=== PATIENT | female | born 1945 | race Hispanic/Latino ===

== ENCOUNTER 2020-04-14 12:39 | Observation (INO) | payer MEDICARE, BC ==
[~2020-04-14] VITALS: Ht 154.9 cm; Wt 81.6 kg
[~2020-04-14 12:39] MED LIST: ESIDRIX25 MG PO; Z VITAMIN E PO; Z.0.CARVEDILOL12.5 M PO; Z.0.LISINOPRIL30 MG PO; Z.1.MECLIZINE HCL25
[2020-04-14] MEDS ORDERED: SODIUM CHLORIDE 0.9% 1000ML 1,000 ML IV STA (13:06)
[2020-04-14] MEDS ORDERED: PANTOPRAZOLE 40 MG 10ML VIAL IV STA (13:06)
[2020-04-14] MEDS ORDERED: ASPIRIN 81 MG CHEW TAB PO STA (13:06)
--- OUTSIDE RECORDS SUMMARY | 2020-04-14 13:29 | XMS REPORT | Clinical Summary ---
Author Author NATASHA [facility] Address Unknown Phone Unavailable Care Team Providers Care Booking Supervisor Name Role Phone Enrrique Gutierrez PCP Unavailable Allergies No Known Allergies Medications End Date Status Medication Sig Dispensed Refills Start Date Active lisinopril Take 30 mg by 0 (PRINIVIL,ZESTRIL) 30 MG mouth daily. tablet Active carvedilol (COREG) 12.5 Take 12.5 mg 0 MG tablet by mouth 2 (two) times daily with breakfast and dinner. Active omega-3 fatty Take by 0 acids-vitamin E 1,000 mg mouth. Cap Active aspirin 81 MG EC tablet Take 81 mg by 0 mouth daily. 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 Last Filed Vital Signs Not on file Plan of Treatment Not on file Results Not on fileafter 2019 Insurance Payer Benefit Subscriber ID Type Phone Address Plan / Group [employer] K[employer] xxxxxxxxxxx MEDICARE ADV BLUE CROSS/BLUE SHIELD BCBS FED xxxxxxxxx PPO [address] [place] [address] Advance Directives For more information, please contact: [facility] [address] [place] [address] Date Inactivated Comments Code Status Date Activated 10/21/2014 10:21 PM Full Code 10/19/2014 3:39 AM This code status was determined by: Patient
[2020-04-14 13:54] LABS: BASOPHILS % 0.5 % (0.0-1.0); EOSINOPHILS # (AUTO) 0.2 (0.0-0.4); EOSINOPHILS % 2.9 % (0.0-6.0); HEMATOCRIT 39.2 % (34.2-44.1); HEMOGLOBIN 13.1 g/dL (12.0-16.0); LYMPHOCYTES # (AUTO) 1.9 (1.0-3.2); LYMPHOCYTES % 34.6 % (18.0-39.1); MEAN CORPUSCULAR HGB CONC 33.4 g/dL (31-35); MEAN CORPUSCULAR VOLUME 86.9 fL (81-99); MONOCYTES # (AUTO) 0.5 (0.2-0.8); MONOCYTES % 8.2 % (4.4-11.3); NEUTROPHILS # (AUTO) 2.9 (2.1-6.9); NEUTROPHILS % 53.4 % (38.7-80.0); PARTIAL THROMBOPLASTIN TIME 31.9 seconds (23.8-35.5); PLATELET COUNT 91 x10e3/uL (140-360); PROTHROMBIN TIME 13.7 seconds (11.9-14.5); RED BLOOD COUNT 4.51 x10e6/uL (3.6-5.1); RED CELL DISTRIBUTION WIDTH 13.2 % (11.7-14.4)
[2020-04-14 13:58] LABS: ALANINE AMINOTRANSFERASE 25 IU/L (0-55); ALBUMIN 3.8 g/dL (3.5-5.0); ALBUMIN/GLOBULIN RATIO 0.9 (0.8-2.0); ALKALINE PHOSPHATASE 94 IU/L (40-150); ANION GAP 16.3 mmol/L (8-16); BLOOD UREA NITROGEN 16 mg/dL (7-26); BUN/CREATININE RATIO 21 (6-25); CALCIUM 9.2 mg/dL (8.4-10.2); CARBON DIOXIDE 21 mmol/L (22-29); CHLORIDE 107 mmol/L (98-107); CREATINE KINASE 96 IU/L (29-168); CREATININE, SERUM 0.75 mg/dL (0.57-1.11); EST GLOMERULAR FILTRATION RATE > 60 ML/MIN (60-); GLUCOSE 90 mg/dL (74-118); LIPASE 10 U/L (8-78); MAGNESIUM 1.6 MG/DL (1.3-2.1); POTASSIUM 3.3 mmol/L (3.5-5.1); SODIUM 141 mmol/L (136-145)
--- NOTE | 2020-04-14 14:03 | Emergency Department Note ---
History of Present Illnes History of Present Illness Chief Complaint: Chest Pain History of Present Illness This is a 75 year old female PATIENT IN FROM HOME WITH COMPLAINTS OF CH EST PAIN OFF AND ON SINCE LAST NIGHT; PATIENT DENIES PAIN AT THIS TIME, STATES THAT SHE HAS REFLUX AND FEELS LIKE MAYBE THAT WAS THE PAIN. PATIENT ALERT AND ORIENTED, RESP EVEN AND NONLABORED, APPEARS IN NO DISTRESS, AMBULATORY WITHOUT ASSISTANCE. Historian: Patient Arrival Mode: Car Commercial Credit Officer Required: No Onset (how long ago): day(s) (SINCE LAST NIGHT) Location: SUN[place]NAL CHEST Quality: PAIN Radiation: Reports non-radiation Severity: moderate Onset quality: gradual Timing of current episode: intermittent Progression: waxing and waning Chronicity: new Context: Denies recent illness Relieving factors: none Exacerbating factors: none Associated symptoms: Reports denies other symptoms Past Medical/Family History Physician Review I have reviewed the patient's past medical and family history. Any updates have been documented here. Past Medical History Recent Fever: No Clinical Suspicion of Infectio: No New/Unexplained Change in Ment: No Past Medical History: Hypertension, Liver Disease, GERD Other Medical History: PRE-DIABETES Past Surgical History: Knee Replacement Other Surgery: X2 LEFT KNEE Social History Smoking Cessation: Never Smoker Counseling Performed: No Alcohol Use: None Any Illegal Drug Use: No TB Exposure/Symptoms: No Physically hurt or threatened: No Family History Family history of heart diseas: No Other Last Tetanus: <5 YEARS Any Pre-Existing Lines (PICC,: No Review of Systems Review of Systems Constitutional: Reports no symptoms EENTM: Reports no symptoms Cardiovascular: Reports as per HPI Respiratory: Reports no symptoms Gastrointestinal: Reports no symptoms Genitourinary: Reports no symptoms Musculoskeletal: Reports no symptoms Integumentary: Reports no symptoms Neurological: Reports no symptoms Psychological: Reports no symptoms Endocrine: Reports no symptoms Hematological/Lymphatic: Reports no symptoms Physical Exam Related Data Allergies: Coded Allergies: No Known Allergies (Unverified , 04/14/20) Triage Vital Signs Vital Signs Date Time Temp Pulse Resp B/P (MAP) Pulse Ox O2 Delivery O2 Flow Rate FiO2 04/14/20 12:42 99.1 85 16 157/87 100 Room Air Vital signs reviewed: Yes Physical Exam CONSTITUTIONAL Constitutional: Present well-developed, Present well-nourished HENT HENT: Present normocephalic, Present atraumatic, Present oropharynx clear/moist, Present nose normal HENT L/R: Present left ext ear normal, Present right ext ear normal EYES Eyes: Reports PERRL, Reports conjunctivae normal NECK Neck: Present ROM normal PULMONARY Pulmonary: Present effort normal, Present breath sounds normal CARDIOVASCULAR Cardiovascular: Present regular rhythm, Present heart sounds normal, Present capillary refill normal, Present normal rate GASTROINTESTINAL Abdominal: Present soft, Present nontender, Present bowel sounds normal GENITOURINARY Genitourinary: Present exam deferred SKIN Skin: Present warm, Present dry MUSCULOSKELETAL Musculoskeletal: Present ROM normal NEUROLOGICAL Neurological: Present alert, Present oriented x 3, Present no gross motor or sensory deficits PSYCHOLOGICAL Psychological: Present mood/affect normal, Present judgement normal Results Laboratory Laboratory Laboratory Tests Test 04/14/20 12:50 Lab results reviewed: Yes Imaging Imaging results reviewed: Yes Procedures 12 Lead ECG Interpretation ECG Interpretation : ECG: ECG 1 Commercial Credit Officer: Interpreted by ED physician Date: Apr 14, 2020 Time: 12:49 Rhythm: sinus rhythm Rate: normal (85) QRS axis: normal ST segments normal: Yes T wave inversion: III, aVF, V1, V3 T waves flattening: V4, V5, V6 Clinical Impression: abnormal ECG Additional Comments POOR RWP Assessment & Plan Medical Decision Making MDM CHEST PAIN WITH CARDIAC RF'S OF HTN & PRE-DM - CBC, CHEM, ECG, CARDIAC ENZYMES, CXR - EVAL FOR STEMI/NSTEMI, PNEUMONIA, GERD, OTHER NON-CARDIAC CAUSES OF CP Reassessment Reassessment ADMIT TO DR ANTONIO (JAKOB PT). PT HAS ELEV BILI - WILL ALSO ORDER GB U/S - R/O CHOLELITHIASIS CAUSE OF PAIN Assessment & Plan Final Impression: (1) Chest pain Depart Disposition: ADMITTED Last Vital Signs Date Time Temp Pulse Resp B/P (MAP) Pulse Ox O2 Delivery O2 Flow Rate FiO2 04/14/20 12:42 99.1 85 16 157/87 100 Room Air Home Meds Reported Medications Hydrochlorothiazide* (ESIDRIX*) 25 Mg Tab, 25 MG PO DAILY 12/05/12 Vitamin E Mixed (Vitamin E) 400 Unit Capsule, 400 UNIT PO 09/30/11 Carvedilol (Carvedilol) 12.5 Mg Tablet, 6.25 MG PO 09/04/11 Lisinopril (Lisinopril) 30 Mg Tablet, 30 MG PO 09/04/11 Medications in the ED Pantoprazole Sodium 40 mg ONCE STAT IV ; Start 04/14/20 at 13:06; Stop 04/14/20 at 13:09; Status DC Sodium Chloride 1,000 ml @ 0 mls/hr Q0M STAT IV ; Start 04/14/20 at 13:06; Stop 04/14/20 at 13:08; Status DC Aspirin 81 mg ONCE STAT PO ; Start 04/14/20 at 13:06; Stop 04/14/20 at 13:09; Status DC KARLA MILLS MD Apr 14, 2020 14:03
[2020-04-14] MEDS ORDERED: POTASSIUM CHLORIDE 20 MEQ TAB CR PO STA (14:17)
--- NOTE | 2020-04-14 14:23 | Diagnostic Imaging Report ---
EXAMINATION: CHEST SINGLE (PORTABLE) INDICATION: Chest pain COMPARISON: None FINDINGS: TUBES and LINES: None. LUNGS: Normal lung volumes. There are prominent interstitial lung markings throughout No consolidations. PLEURA: No pleural effusion or pneumothorax. HEART AND MEDIASTINUM: The cardiomediastinal silhouette is unremarkable. BONES AND SOFT TISSUES: No acute osseous lesion. Soft tissues are unremarkable. UPPER ABDOMEN: No free air under the diaphragm. IMPRESSION: Prominent interstitial lung markings which can be seen with pulmonary vascular congestion, reactive airway disease or bronchitis. Signed by: Adrian Charles MD on 04/14/2020 2:19 PM
--- OUTSIDE RECORDS SUMMARY | 2020-04-14 14:26 | XMS REPORT | Continuity of Care Document ---
Author Author [facility] t Organization [facility] Address [address] [place] [address] Phone Unavailable Care Team Providers Care Illuminator Name Role Phone MattAsif Enrrique PCP Unavailable Francesco MILLS Attphys Unavailable Francesco ANTONIO Admphys Unavailable Problems Condition Name Condition Details Condition Category Status Onset Date Resolution Date Last Treatment Date Treating Clinician Comments Source Hypertension Hypertension Disease Active 2014-10-19 00:00:00 [facility] Dehydration Dehydration Disease Active 2014-10-19 00:00:00 [facility] Gastroenteritis Gastroenteritis Disease Active 2014-10-19 00:00:00 [facility] Cholelithiasis Cholelithiasis Disease Active 2014-10-19 00:00:00 [facility] Small bowel obstruction Small bowel obstruction Disease Active 2014-10-19 00:00:00 [facility] Nausea and vomiting Nausea and vomiting Disease Active 2014-10-18 00:00 :00 [facility] Mesenteric panniculitis Mesenteric panniculitis Disease Active 2014-10-18 00:00:00 [facility] Allergies, Adverse Reactions, Alerts This patient has no known allergies or adverse reactions. Family History Family Member Diagnosis Comments Start Date Stop Date Source Natural brother Unremarkable [facility] Natural daughter Unremarkable [facility] Natural son Unremarkable [facility] Social History Social Habit Start Date Stop Date Quantity Comments Source Sex Assigned At [facility] Smoking Status Start Date Stop Date Source Never smoker [facility] Medications Ordered Medication Name Filled Medication Name Start Date Stop Da te Current Medication? Ordering Clinician Indication Dosage Frequency Signature (SIG) Comments Components Source hydrochlorothiazide (HYDRODIURIL) 25 MG tablet 2014-10-21 00:00: 00 Yes Resume 1 tab PO daily on 10/23 [facility] lisinopril (PRINIVIL,ZESTRIL) 30 MG tablet 2014-10-18 17:37:46 Yes 30mg QD Take 30 mg by mouth daily. [facility] carvedilol (COREG) 12.5 MG tablet 2014-10-18 17:37:46 Yes 12.5mg Take 12.5 mg by mouth 2 (two) times daily with breakfast and dinner. [facility] omega-3 fatty acids-vitamin E 1,000 mg Cap 2014-10-18 17:37:46 Yes Take by mouth. [facility] aspirin 81 MG EC tablet 2014-10-18 17:37:46 Yes 81mg QD Take 81 mg by mouth daily. [facility] Procedures This patient has no known procedures. Results Test Description Test Time Test Comments Results Result Comments Source CHEST SINGLE (PORTABLE) 2020 14:06:00 [place] [address] Patient Name: SARAH OJEDA MR #: [id number] : 1945 Age/Sex: 75/F Req #: [id number] Adm Physician: Ordered by: KARLA MILLS MD Report #: [id number] Location: ER Room/Bed: Procedure: [id number] DX/CHEST SINGLE (PORTABLE) Exam Date: Exam Time: REPORT STATUS: Signed EXAMINATION: CHEST SINGLE (PORTABLE) INDICATION: Chest pain COMPARISON: None FINDINGS: TUBES and LINES: None. LUNGS: Normal lung volumes. There are prominent interstitial lung markings throughout No consolidations. PLEURA: No pleural effusion or pneumothorax. HEART AND MEDIASTINUM: The cardiomediastinal silhouette is unremarkable. BONES AND SOFT TISSUES: No acute osseous lesion. Soft tissues are unremarkable. UPPER ABDOMEN: No free air under the diaphragm. IMPRESSION: Prominent interstitial lung markings which can be seen with pulmonary vascular congestion, reactive airway disease or bronchitis. Signed by: Kendal Viera MD on 2020 2:19 PM Dictated By: KENDAL VIERA MD [id number] Transcribed By: MICHAEL on 04/14/20 141 COPY TO: KARLA MILLS MD
--- OUTSIDE RECORDS SUMMARY | 2020-04-14 14:26 | XMS REPORT | Clinical Summary ---
Author Author NATASHA [facility] Address Unknown Phone Unavailable Care Team Providers Care Gold Leaf Layer Name Role Phone Enrrique Gutierrez PCP Unavailable [...] SHIELD BCBS FED xxxxxxxxx PPO [address] [place] [address] Advance Directives For more information, please contact: [facility] [address] [place] [address] Date Inactivated Comments Code Status Date Activated 10/21/2014 10:21 PM Full Code 10/19/2014 3:39 AM This code status was determined by: Patient
[2020-04-14] MEDS ORDERED: NITROGLYCERIN 0.4 MG SUBL SL PRN (14:30)
[2020-04-14] MEDS ORDERED: ONDANSETRON HCL INJ 2MG/ML 2ML 2 MG/ML VIAL IV PRN (14:30)
[2020-04-14] MEDS: METOPROLOL TARTRATE 25 MG TAB PO SCH (15:18)
[2020-04-14] MEDS: FAMOTIDINE 20 MG/2 ML VIAL IV SCH (15:18)
--- NOTE | 2020-04-14 15:51 | NUR ---
Attempted to call report for patient, informed report could not be given until the room was clean. Informed staff that this RN would not bring pt until rm was clean. No answer given.
--- NOTE | 2020-04-14 17:02 | Diagnostic Imaging Report ---
EXAM: Right Upper Quadrant Ultrasound with Doppler INDICATION: Right upper quadrant abdominal pain. COMPARISON: None. TECHNIQUE: Transverse and longitudinal images of the right upper abdomen were obtained. Grayscale, color Doppler and spectral waveform analysis of the hepatic vasculature and splenic vein were performed. FINDINGS: Liver: Size: 13.3 cm in the right midclavicular line, normal Appearance: Normal echogenicity, smooth contour Mass: No focal masses Gallbladder: Stones/Sludge: None Wall: 0.2 cm Appearance: No pericholecystic fluid or hydrops. Sonographic Duval's Sign: Negative Bile Ducts: Intrahepatic Ducts: No dilatation Extrahepatic Ducts: Common bile duct measures 0.4 cm, no dilatation Pancreas: Not visualized due to obscuration by overlying bowel gas. Right Kidney: Size: 9.9 x 4.1 x 4.9 cm Echogenicity: Normal Parenchymal thickness: Normal Collecting system: No hydronephrosis Stones: None Cyst/Mass: None Vessels: Main Portal Vein: Diameter: 0.9 cm, normal. Normal flow direction. Aorta: Visualized portions are normal measuring approximately 1.4 cm in the midabdomen. Inferior Vena Cava: Not well visualized due to overlying bowel gas. Free Fluid: No ascites or pleural effusion Others: There are indeterminate hypoechoic lesions near the midline of the abdomen which measure approximately 8.0 x 4.3 x 5.0 cm and 1.9 x 1.9 x 2.2 cm. IMPRESSION: 1. No evidence of cholelithiasis or cholecystitis. 2. Indeterminate hypoechoic lesions near the midline of the abdomen which measure approximately 8.0 x 4.3 x 5.0 cm and 1.9 x 1.9 x 2.2 cm. Recommend further evaluation with contrast-enhanced CT of the abdomen/pelvis. Signed by: Adrian Charles MD on 04/14/2020 4:59 PM
--- NOTE | 2020-04-14 17:33 | NUR ---
Nursing report given to Mauro ATKINS on med-surg 2.
[2020-04-14 18:04] VITALS: BP 166/78
[2020-04-14] MEDS ORDERED: ACETAMINOPHEN 325 MG TAB PO PRN (18:30)
[2020-04-14 18:38] VITALS: BP 166/78
[2020-04-14 18:39] VITALS: BP 166/78
--- NOTE | 2020-04-14 19:29 | NUR ---
pt resting in bed no signs of distress pt verbalized no complaints at this time
[2020-04-14 20:00] VITALS: BP 136/72
[2020-04-14] MEDS ORDERED: MECLIZINE HCL 12.5 MG TAB PO PRN (20:00)
[2020-04-14] MEDS ORDERED: CLONIDINE HCL 0.1 MG TAB PO PRN (20:00)
[2020-04-14 20:50] VITALS: BP 136/72
[2020-04-14 21:08] LABS: CREATINE KINASE MB 1.7 ng/mL (0-5.0)
[2020-04-14] MEDS ORDERED: IOPAMIDOL 370 MG/ML 200 ML INFUS..BTL INJ ONE (21:57)
[2020-04-14] MEDS ORDERED: SODIUM CHLORIDE 0.9% 50ML 50 ML ONE (21:57)
[2020-04-15] VITALS (8 sets, daily range): BP systolic 113–167; BP diastolic 58–89
[2020-04-15] MEDS: METOPROLOL TARTRATE 25 MG TAB PO SCH ×2 (02:02→14:13)
[2020-04-15] MEDS: FAMOTIDINE 20 MG/2 ML VIAL IV SCH ×2 (02:02→14:02)
[2020-04-15 06:00] LABS: BASOPHILS % 0.9 % (0.0-1.0); EOSINOPHILS # (AUTO) 0.2 (0.0-0.4); EOSINOPHILS % 4.4 % (0.0-6.0); HEMATOCRIT 36.6 % (34.2-44.1); HEMOGLOBIN 12.6 g/dL (12.0-16.0); LYMPHOCYTES # (AUTO) 1.5 (1.0-3.2); LYMPHOCYTES % 36.1 % (18.0-39.1); MEAN CORPUSCULAR HEMOGLOBIN 31.3 pg (28-32); MEAN CORPUSCULAR HGB CONC 34.4 g/dL (31-35); MEAN CORPUSCULAR VOLUME 90.8 fL (81-99); MONOCYTES # (AUTO) 0.4 (0.2-0.8); MONOCYTES % 8.7 % (4.4-11.3); NEUTROPHILS # (AUTO) 2.1 (2.1-6.9); NEUTROPHILS % 49.7 % (38.7-80.0); PLATELET COUNT 97 x10e3/uL (140-360); RED BLOOD COUNT 4.03 x10e6/uL (3.6-5.1); RED CELL DISTRIBUTION WIDTH 13.5 % (11.7-14.4)
[2020-04-15 06:31] LABS: ALANINE AMINOTRANSFERASE 22 IU/L (0-55); ALBUMIN 3.3 g/dL (3.5-5.0); ALBUMIN/GLOBULIN RATIO 0.9 (0.8-2.0); ALKALINE PHOSPHATASE 73 IU/L (40-150); ANION GAP 10.6 mmol/L (8-16); BLOOD UREA NITROGEN 15 mg/dL (7-26); BUN/CREATININE RATIO 21 (6-25); CALCIUM 8.7 mg/dL (8.4-10.2); CARBON DIOXIDE 23 mmol/L (22-29); CHLORIDE 111 mmol/L (98-107); CHOLESTEROL 124 MD/DL (0-199); EST GLOMERULAR FILTRATION RATE > 60 ML/MIN (60-); GLUCOSE 85 mg/dL (74-118); HDL CHOLESTEROL 41 MG/DL (40-60); LDL CHOLESTEROL 69 MG/DL (60-130); POTASSIUM 3.6 mmol/L (3.5-5.1); SODIUM 141 mmol/L (136-145); TRIGLYCERIDES 70 MG/DL (0-149)
--- NOTE | 2020-04-15 06:46 | NUR ---
RECEIVED BEDSIDE SHIFT REPORT FROM OFF GOING NURSE. PATIENT IS RESTING IN BED, NO ACUTE DISTRESS NOTED. CALL LIGHT WITHIN REACH, BED IN THE LOWEST POSITION.
[2020-04-15 07:01] LABS: CREATINE KINASE MB 1.8 ng/mL (0-5.0)
--- NOTE | 2020-04-15 07:42 | Diagnostic Imaging Report ---
EXAM: CT Abdomen and Pelvis WITH contrast INDICATION: Intra-abdominal lesions seen on ultrasound, CT follow-up COMPARISON: Abdominal ultrasound 04/14/2020. TECHNIQUE: Abdomen and pelvis were scanned utilizing a multidetector helical scanner from the lung base to the pubic symphysis after administration of IV contrast. Coronal and sagittal reformations were obtained. Routine protocol was performed. Scan was performed when during portal venous phase. IV CONTRAST: 100 mL of Isovue 370 ORAL CONTRAST: None COMPLICATIONS: None RADIATION DOSE: Total DLP: 712 mGy*cm Estimated effective dose: (DLP x 0.015 x size factor) mSv CTDIvol has been reviewed. It is below the limits set by the Radiation Protocol Committee (RPC). Dose modulation, iterative reconstruction, and/or weight based adjustment of the mA/kV was utilized to reduce the radiation dose to as low as reasonably achievable. FINDINGS: LINES and TUBES: None. LOWER THORAX: Coronary artery calcifications. Mild cardio may be. HEPATOBILIARY: No focal hepatic lesions. No biliary ductal dilation. GALLBLADDER: No radio-opaque stones or sludge. No wall thickening. Mildly distended. SPLEEN: Multiple hypodense splenic masses, largest measures 3.3 cm. PANCREAS: No focal masses or ductal dilatation. ADRENALS: No adrenal nodules KIDNEYS/URETERS: Kidneys enhance symmetrically. No hydronephrosis. No cystic or solid mass lesions. No stones. GI TRACT: No abnormal distention, wall thickening, or evidence of bowel obstruction. Colonic diverticuli. Appendix is normal. PELVIC ORGANS/BLADDER: Atrophic uterus with subtle internal calcifications. Adnexa and urinary bladder unremarkable. Unremarkable. LYMPH NODES: Multiple enlarged mid/upper retroperitoneal, mesenteric lymph nodes, largest is a 5 cm mesenteric lymph node with internal hypodensity. VESSELS: Arterial calcifications. PERITONEUM / RETROPERITONEUM: No free air or fluid. BONES: Degenerative changes. SOFT TISSUES: Unremarkable. IMPRESSION: Multiple enlarged retroperitoneal and mesenteric lymph nodes and multiple splenic masses is concerning for lymphoma. Metastases from unknown primary carcinoma is a less likely consideration. Atypical infection, such as fungal or mycobacterial, is also less likely consideration. Mild cardiomegaly and coronary artery calcific atherosclerosis. Signed by: Mann Duvall DO on 04/15/2020 7:38 AM
[2020-04-15] MEDS: ASPIRIN 81 MG ENTERIC COATED PO SCH (08:20)
[2020-04-15] MEDS: HYDROCHLOROTHIAZIDE 25 MG TAB PO SCH (08:20)
--- NOTE | 2020-04-15 10:38 | Consultation ---
DATE OF CONSULTATION: 04/15/2020 REASON FOR CONSULTATION: Chest pain. CHIEF COMPLAINT: Chest pain. HISTORY OF PRESENT ILLNESS: This is a 75-year-old female with history of reflux and hypertension. The patient presents to [facility] ER with complaints of chest pain. Cardiac enzymes negative thus far. Labs noted with an elevated bilirubin. The patient underwent CT scan of the abdomen and pelvis, which showing multiple enlarged retroperitoneal mesenteric lymph nodes and multiple splenic masses, concerning for lymphoma. The patient is seen in room, reports yesterday woke up from sleeping with substernal chest pain, cramping in nature, lasting few seconds, would come and go, thought her was reflux, however, came to the ER for further evaluation. At this time, the patient denies any chest pain or shortness of breath. PAST MEDICAL HISTORY: Reflux and hypertension. PAST SURGICAL HISTORY: Left knee meniscus and x2. SOCIAL HISTORY: She is . She has 8 children. Denies any alcohol or tobacco use. FAMILY HISTORY: Mother in her 60s with liver cirrhosis. Father in his 60s. Family history of diabetes. One brother with history of abdominal cancer. HOME MEDICATIONS: Include hydrochlorothiazide 25 mg daily and losartan 100 mg daily. ALLERGIES: NO KNOWN ALLERGIES. REVIEW OF SYSTEMS: GENERAL: Denies any weight changes, fatigue, weakness, fever, chills, or night sweats. SKIN: No rashes or bruises. HEENT denies any nausea, vomiting, vision change, blurred vision, double vision, epistaxis, sore throat, swollen neck, or stiff neck. CARDIAC: Positive for substernal chest pain. Denies any palpitations. Positive for dyspnea on exertion. Denies any orthopnea, PND, or lower extremity edema. RESPIRATORY: Denies any shortness of breath, any hemoptysis, any wheezing, or coughing. GI: Denies any change in appetite. Denies any nausea, vomiting, diarrhea, constipation, melena, tarry or bloody stools. URINARY: Denies any frequency, urgency, hematuria, or dysuria. VASCULAR: Denies any lower extremity edema or claudication. MUSCULOSKELETAL: Denies any muscle weakness. Positive for generalized joint pains and back pain. NEUROLOGIC: Denies any numbness, tingling, tremors, paralysis, fainting, blackouts, or seizures. HEMATOLOGY: Denies any bruising or bleeding. ENDOCRINE: Denies any heat or cold intolerances, polyuria, polydipsia, or polyphagia. PHYSICAL EXAMINATION: VITAL SIGNS: Height 61 inches and weight 180 pounds. Temperature 98.0, pulse 63, respiratory rate 19, blood pressure 135/89, and pulse ox 98% on room air. GENERAL: Appears stated age, reliable informant. No acute distress. SKIN: No rashes or bruises noted. HEENT: Normocephalic. Pupils are equal and reactive. Extraocular movements are intact. Trachea midline. No JVD. No carotid bruits. HEART: Regular rate and rhythm. PMI about 4th and 5th intercostal space. LUNGS: Bilateral breath sounds. Clear to auscultation. Good airway entry and exit. ABDOMEN: Soft, nontender, and nondistended. No organomegaly noted. MUSCULOSKELETAL: Good muscle strength throughout. No lower extremity edema noted. VASCULAR: +2 radial pulses bilaterally, +1 DP/PT pulses bilaterally. NEUROLOGIC: Cranial nerves 2 through 12 seem intact. LABORATORY DATA: Sodium 141, potassium 3.6, chloride 111, BUN 15, and creatinine 0.7. Total bilirubin 1.3. Troponin I 0.004, next 0.002, next 0.005, next 0.02. BNP 29. TSH 1.8. White count 4, hemoglobin of 12, hematocrit of 36, and platelets 97. PT 13, INR 1, and PTT 31. COVID PCR pending. CT of the abdomen showing multiple enlarged retroperitoneal and mesenteric lymph nodes with multiple splenic masses concerning for lymphoma. EKG showing sinus rhythm. ASSESSMENT: 1. Substernal chest pain. 2. Multiple enlarged retroperitoneal and mesenteric lymph nodes and splenic mass, concerning for lymphoma. 3. Hypertension. 4. Family history of cancer. PLAN: The patient presents to [facility] ER with complaints of substernal chest pain, atypical for cardiac. Cardiac enzymes strongly negative x4. CT of the abdomen and pelvis showing multiple mesenteric and retroperitoneal lymph node enlargement and also splenic masses, concerning for cancer. Workup as per primary service. We will do echo just to evaluate heart structurally. We will continue to follow the patient. Thank you very much for this consult. Seen and examined Agree with note Dictated by Kirk Gardner NP Magnus Gracia MD DC/SHERYL /[id number] MTDD
--- NOTE | 2020-04-15 16:36 | History and Physical ---
PRIMARY CARE PHYSICIAN: Dr. Maite Kraus at [facility]. CHIEF COMPLAINT: Chest pain and nausea. HISTORY OF PRESENT ILLNESS: This is a 75-year-old female with past medical history of hypertension, GERD, vertigo, cirrhosis, and rheumatoid arthritis, presented to the ER with complaints of chest pain that started early this morning. She reports the pain woke her up from her sleep at around 3 a.m. She could not go back to sleep due to severity and on and off pain. She describes the pain as pressure in mid chest area radiating to her back. She reports was associated with nausea. She went to the bathroom, felt dizzy, no more than usual. She denies any fever, chills, vomiting, diarrhea, diaphoresis, cough, ill contact, or right upper quadrant pain. She reports has had acid reflux in the past, but reports this did not feel like an acid reflux, as the pain is pressure and stabbing pain as opposed to the burning sensation that usually happens with her acid reflux. In the ER, chest x-ray showed prominent interstitial lung markings, which can be seen with pulmonary vascular congestion, reactive airway disease, or bronchitis. CBC within normal limits. Potassium was 3.3 and creatinine 0.75. Total bilirubin 1.3 and AST 41. BNP 29.5. Troponin 0.004. Admitted for further evaluation. PAST MEDICAL HISTORY: 1. Hypertension. 2. Cirrhosis of the liver. 3. GERD. 4. Vertigo. 5. Rheumatoid arthritis. PAST SURGICAL HISTORY: Reports and left knee surgery. FAMILY MEDICAL HISTORY: Reports mother had cirrhosis. Father had diabetes. SOCIAL HISTORY: She denies any tobacco, alcohol, or illicit drug use. Lives with her . ALLERGIES: NO KNOWN DRUG ALLERGIES. REVIEW OF SYSTEMS: Twelve-system reviewed and negative except as reported in HPI. PHYSICAL EXAMINATION: VITAL SIGNS: Temperature 98.4, pulse is 78, respirations 16, blood pressure 166/78, and pulse ox is 99% on room air. GENERAL: No acute distress. HEENT: Normocephalic and atraumatic. NECK: Supple. LUNGS: Clear to auscultation. CARDIOVASCULAR: Regular rate and rhythm. ABDOMEN: Soft and nontender. MUSCULOSKELETAL: Moves all extremities. No edema. NEUROLOGIC: Alert, awake, and oriented x3. SKIN: Dry. PSYCH: Calm. LABORATORY DATA: WBC 5.46, hemoglobin 13.1, hematocrit 39.2, and platelet 91. Sodium 141, potassium 3.3, CO2 21, creatinine 0.75, BUN is 16, and estimated GFR is greater than 60. Magnesium 1.6. Total bilirubin 1.3, AST 41, and ALT 25. CK 96 and troponin 0.004. BNP 29.5. Globulin 4.1. Lipase 10. TSH 1.808. PT 13.7, INR 1.0, and APTT 31.9. Coronavirus PCR is pending. IMAGING: Chest x-ray shows prominent interstitial lung markings, which can be seen with pulmonary vascular congestion, reactive airway disease, or bronchitis. Gallbladder ultrasound shows no evidence of cholelithiasis or cholecystitis, indeterminate hypoechoic lesions near the midline of the abdomen. Recommend further evaluation with network security consultant and CT of the abdomen and pelvis. IMPRESSION: 1. Chest pain, rule out acute coronary syndrome. First troponin is negative. We will continue to trend. She was given aspirin and Protonix in the ER. Reports pain is improved. We will continue to trend and consult Cardiology for further evaluation. 2. Hypertension. We will continue with hydrochlorothiazide and metoprolol b.i.d. 3. Gastroesophageal reflux disease. We will continue with Pepcid. 4. Cirrhosis of the liver. Ultrasound showed enlarged liver. We will order CT abdomen and pelvis with contrast for further evaluation. 5. Hypokalemia. Replaced in the ER. We will repeat labs in a.m. 6. History of vertigo. We will order meclizine as needed. 7. Rheumatoid arthritis. We will treat with Tylenol as needed. 8. Elevated T-bilirubin 1.3, likely due to cirrhosis. 9. Deep vein thrombosis prophylaxis. Lovenox subcutaneous. Dictated by DWIGHT Mckenna Lisandro Allen MD MY/MODL /[id number]
[2020-04-15] MEDS ORDERED: ENOXAPARIN 30 MG/0.3 ML SYR SC SCH (17:00)
--- NOTE | 2020-04-15 19:14 | NUR ---
gave bedside report to warehouse worker 2nd shift nurse. pt is stable resting in bed, no distress noted. call light within reach.
--- NOTE | 2020-04-15 21:17 | Progress Note ---
DATE: 04/15/2020 CONSULTANTS: 1. Dr. Gracia of Cardiology. 2. Dr. Curtis, oncologist. SUBJECTIVE: The patient is sitting up in a chair. Reports chest pain is improved. She denies any nausea, vomiting, fever, or chills. The patient regarding CT findings and agree to see oncologist for further input. PHYSICAL EXAMINATION: VITAL SIGNS: Temperature 97.0, pulse is 77, respirations 19, blood pressure 167/84, and pulse ox is 99% on room air. GENERAL: No acute distress. HEENT: Normocephalic and atraumatic. NECK: Supple. LUNGS: Clear to auscultation. CARDIOVASCULAR: Regular rate and rhythm. ABDOMEN: Soft and nontender. MUSCULOSKELETAL: Moves all extremities . No edema. NEUROLOGIC: Alert, awake, and oriented x3. SKIN: Dry. PSYCH: Calm. LABORATORY DATA: WBC 4.27, hemoglobin 12.6, hematocrit 36.6, and platelets 97. Sodium 141, potassium 3.6, BUN 15, creatinine 0.70, and estimated GFR is greater than 60. Lactate dehydrogenase is 339. AST 34 and ALT 22. Troponin I negative x3. Triglycerides 70, cholesterol 124, and LDL 69. COVID PCR is pending. CT abdomen and pelvis shows multiple enlarged retroperitoneal and mesenteric lymph nodes and multiple splenic masses, is concerning for lymphoma and suspicious from unknown primary carcinoma is the less likely consideration, antifungal infection such as fungal or mycobacterial is also less likely consideration. Mild cardiomegaly and coronary artery calcific atherosclerosis. IMPRESSION: 1. Chest pain, rule out acute coronary syndrome. Troponin x3 negative. She was given aspirin and Protonix. Echo has been ordered per Cardiology. 2. Questionable lymphoma. CT abdomen and pelvis discussed with the patient. Oncology has been consulted. 3. Hypertension. We will continue with beta-yumiko and hydrochlorothiazide. 4. Gastroesophageal reflux disease. We will continue on Pepcid. 5. History of cirrhosis. 6. History of vertigo. Meclizine as needed. 7. Rheumatoid arthritis. Continue Tylenol as needed. 8. Thrombocytopenia. Platelets 91. We will continue to monitor. No signs of bleeding noted. 9. Deep vein thrombosis prophylaxis. Lovenox subcutaneous. PLAN: To continue current treatment. Oncology has been consulted. Dictated by DWIGHT Mckenna Yiching MD WINNIE Dorado/SHERYL /[id number]
[2020-04-15] MEDS ORDERED: SODIUM CHLORIDE 0.9% 50ML 50 ML ONE (23:31)
[2020-04-15] MEDS ORDERED: IOPAMIDOL 370 MG/ML 200 ML INFUS..BTL INJ ONE (23:31)
[2020-04-16] VITALS: BP 125/63
--- NOTE | 2020-04-16 00:19 | Diagnostic Imaging Report ---
EXAM: CT Chest WITH contrast 04/15/2020 11:45 PM INDICATION: LYMPHOMA COMPARISON: CT abdomen and pelvis from 04/14/2020. TECHNIQUE: Chest was scanned utilizing a multidetector helical scanner from the lung apex through the level of the adrenal glands with administration of IV contrast. Coronal and sagittal reformations were obtained. Routine protocol was performed. IV CONTRAST: 100 mL of Omnipaque 300 COMPLICATIONS: None RADIATION DOSE: Total DLP: 527.75 mGy*cm Estimated effective dose: (DLP x 0.014 x size factor) mSv CTDIvol has been reviewed. It is below the limits set by the Radiation Protocol Committee (RPC). Dose modulation, iterative reconstruction, and/or weight based adjustment of the mA/kV was utilized to reduce the radiation dose to as low as reasonably achievable. FINDINGS: LINES/ TUBES: None. LUNGS AND AIRWAYS: No consolidation. No groundglass opacity. Mild linear scarring or atelectasis bilaterally. Airways are normal. PLEURA: The pleural spaces are clear. HEART AND MEDIASTINUM: The heart is not enlarged. No pericardial effusion. The thoracic aorta and main pulmonary artery are normal caliber. No mediastinal lymphadenopathy. UPPER ABDOMEN: Multiple rounded low dense splenic lesions measuring up to 3.1 cm, similar to prior. BONES: The visualized bony thorax is within normal limits. Lymph nodes: * Enlarged 1.5 cm cervical lymph node adjacent to the hyoid bone on the left. * Enlarged rounded 2.0 cm lymph node in the left axilla. * Multiple periaortic enlarged lymph nodes measuring up to 1.9 cm the level of the renal arteries and SMA. IMPRESSION: 1. No acute lung disease. 2. Multiple splenic lesions and enlarged lymph nodes involving the left cervical chain, left axilla, and retroperitoneum, similar to prior. Findings are compatible with lymphoma per history. Signed by: Boyd Armendariz MD on 04/16/2020 12:15 AM
[2020-04-16] MEDS: FAMOTIDINE 20 MG/2 ML VIAL IV SCH (02:15)
[2020-04-16] MEDS: METOPROLOL TARTRATE 25 MG TAB PO SCH (02:15)
[2020-04-16 04:00] VITALS: BP 97/52
--- NOTE | 2020-04-16 07:00 | NUR ---
Bedside report received from film processing shift supervisor nurse. Pt is awake in bed resting, no distress noted. Call light is within reach, bed is lowered, and side rails up x2.
--- NOTE | 2020-04-16 07:08 | NUR ---
Bedside report and walking rounds completed with oncoming nurse. Patient in bed with call light within reach. No issues or concerns noted.
[2020-04-16 08:18] VITALS: BP 135/75
[2020-04-16] MEDS: HYDROCHLOROTHIAZIDE 25 MG TAB PO SCH (08:21)
[2020-04-16] MEDS: ASPIRIN 81 MG ENTERIC COATED PO SCH (08:21)
[2020-04-16 08:59] VITALS: BP 135/75
--- NOTE | 2020-04-16 10:05 | History and Physical ---
Consultation to Dr. Lisandro Allen. HISTORY OF PRESENT ILLNESS: Michelle Lan is a 75-year-old female who presented with abdominal pain, subsequently was found to have intraperitoneal lymph nodes and retroperitoneal lymph nodes, subsequently referred to me for further evaluation and treatment. SOCIAL HISTORY: Noncontributory. FAMILY HISTORY: Noncontributory. ALLERGIES: REPORTED NONE. MEDICATIONS: At this time: 1. Tylenol. 2. Aspirin. 3. Clonidine. 4. Lovenox. 5. Pepcid. 6. Hydrochlorothiazide. 7. Meclizine. 8. Metoprolol. 9. Nitroglycerin. 10. Ondansetron. REVIEW OF SYSTEMS: HEENT: Normal. CARDIAC: Hypertension. RESPIRATORY: Normal. GI: Massive intraabdominal and retroperitoneal lymphadenopathy. : Normal. MUSCULOSKELETAL: Normal. SKIN AND BREASTS: Normal. NEUROENDOCRINE: Essentially normal. The patient also suffers from vertigo. PHYSICAL EXAMINATION: GENERAL: A moderately built female. A large right axillary node 4 cm. HEART: Within normal limits. LUNGS: Clear. ABDOMEN: Obese. RECTAL: Exam is deferred. VAGINAL: Exam is deferred. CENTRAL NERVOUS SYSTEM: Essentially normal. EXTREMITIES: 1+ pitting edema. LABORATORY DATA: CBC shows a hemoglobin of 13.1, hematocrit of 39.2, white count 5460, and platelets low at 91,000. Chemistry shows a sodium of 141, potassium 3.3, chloride 107, CO2 of 21, BUN 16, and creatinine 0.75. Bilirubin slightly high at 1.3, SGOT slightly high at 41. Total protein 7.9, albumin 3.8, globulin 4.1, and TSH 1.8. IMAGING DATA: Imaging consists of a chest x-ray, which was reported essentially normal. Ultrasound of the gallbladder was done which showed a midline mass 8 x 4.3 x 5 cm and another mass 1.9 x 1.9 x 2.2 cm. This was followed by a CT scan of the abdomen and pelvis. The patient showed multiple enlarged mid upper retroperitoneal and mesenteric lymph nodes. The largest node being 5 cm. There were arterial calcifications. There were degenerative changes in the bones. There was mild cardiomegaly and also coronary artery calcifications. IMPRESSION: 1. Lymphoma, low grade, until proven otherwise. 2. History of hypertension. 3. Coronary artery calcifications. 4. Thrombocytopenia. PLAN, COMMENTS, AND SUGGESTIONS: Suggest the patient to have a right axillary node biopsy once confirmed that this is lymphoma, the patient should undergo a PET scan and bone marrow biopsy, echocardiogram, Port-A-Cath insertion for systemic chemotherapy depending on the type of lymphoma. Clinically, I suspect that this is going to be a low-grade lymphoma. However, if high-grade, the patient will have to have very aggressive systemic chemotherapy which is far however if low-grade. The patient would be treated with bendamustine and Rituxan. Approximately half an hour conference with the patient's family over the phone with the nurse present was carried out. Thank you very much for allowing me to participate in management of this patient. MD SHELLEY Toribio/MODL /[id number] cc: Lisandro Allen MD
--- NOTE | 2020-04-16 11:51 | Progress Note ---
DATE: 04/16/2020 I had a long talk with the patient's family over the phone and I explained I suspect this to be lymphoma. I suggested a biopsy, a PET scan, and echocardiogram. I also gave them the option to have a second opinion. The patient perhaps cannot be treated by me, as she has [employer] type of insurance. Thrombocytopenia, possibly also related to lymphoma, as there is a higher incidence of anti-platelet, antibodies and lymphoma. However, this is of academic interest, as the patient will eventually need a bone marrow if confirmed to be lymphoma. Thank you very much for allowing me to participate in management of this patient. MD SHELLEY Toribio/SHERYL /[id number] cc: Lisandro Allen MD
[2020-04-16 11:53] VITALS: BP 136/81
--- NOTE | 2020-04-16 13:06 | NUR ---
Discharge teachings were given to pt. Pt was discharged home with family stable by private vehicle. IV was discontinued, tip intact no redness or swelling noted.
[2020-04-16] MEDS ORDERED: FAMOTIDINE 20 MG/2 ML VIAL IV SCH (18:00)
[2020-04-16] MEDS ORDERED: METOPROLOL TARTRATE 25 MG TAB PO SCH (18:00)
--- NOTE | 2020-04-16 22:19 | Discharge Summary ---
PCP: Dr. Maite Kraus at [facility]. FINAL DISCHARGE DIAGNOSES: 1. Chest pain, ruled out acute coronary syndrome. 2. Suspected lymphoma. 3. Hypertension. 4. Gastroesophageal reflux disease. 5. History of cirrhosis. 6. Vertigo. 7. Rheumatoid arthritis. 8. Thrombocytopenia. CONSULTANTS: 1. Dr. Gracia with Cardiology. 2. Dr. Curtis with Oncology. PROCEDURES: None. HISTORY: Per HPI. HOSPITAL COURSE: This is a 75-year-old female, who presented to the ER with complaints of chest pain. ACS was ruled out with troponin x3 negative. Echocardiogram with an ejection fraction of 70%. She had also complained of right upper quadrant pain, radiating to her back with slight elevation of total bilirubin of 1.3. Gallbladder ultrasound was done, which showed indeterminate hypoechoic lesion near the midline abdomen, which measures approximately 8 x 4.3 x 5 and 1.9 x 1.9 x 2.[address] abdomen for further evaluation. CT abdomen and pelvis showed multiple enlarged retroperitoneal and mesenteric lymph nodes and multiple splenic masses is concerning for lymphoma, suspicious from unknown primary carcinoma is less likely consideration, therefore Hematology/Oncology was consulted. She was advised for further evaluation for lymphoma with biopsy, PET scan, and echocardiogram. She will discuss with her children regarding options. They will follow up with [facility] and primary care to proceed with treatment. Today, she denies any chest pain, shortness of breath, abdominal pain, nausea, vomiting, or abdominal pain. We have answered all her questions and she is going to be discharged to follow up with her PCP. PHYSICAL EXAMINATION: VITAL SIGNS: Temperature 97.7, pulse is 76, respirations 19, blood pressure 135/75, pulse ox is 99% on room air. GENERAL: No acute distress. HEENT: Normocephalic and atraumatic. NECK: Supple. LUNGS: Clear to auscultation. CARDIOVASCULAR: Regular rate and rhythm. ABDOMEN: Soft and nontender. MUSCULOSKELETAL: Moves all extremities. No edema. NEUROLOGIC: Alert, awake, and oriented x3. SKIN: Dry. PSYCH: Calm. CONDITION AT DISCHARGE: Improved and stable. DISCHARGE MEDICATIONS: Please see medication reconciliation list. FOLLOWUP: Follow up with PCP in 1 to 2 days. She is also advised to follow up with oncologist in the next few days. TIME SPENT: Total discharge time is 31 minutes. Dictated by Radha Mahoney, ANP MD WINNIE Fritz/TERELLL /[id number] cc: Maite Kraus MD [facility]
== END 2020-04-16 13:05 | disposition home or self-care (01) ==
LOC: ER 13:27 → ERHOLD 14:20 → MED/SURG2 17:57
PROVIDERS: ADMIT Internal Medicine; ATTEND Internal Medicine
DX: C85.97 Non-Hodgkin lymphoma, unspecified, spleen (principal); I10 Essential (primary) hypertension; K21.9 Gastro-esophageal reflux disease without esophagitis; K74.60 Unspecified cirrhosis of liver; R42 Dizziness and giddiness; M06.9 Rheumatoid arthritis, unspecified; D69.6 Thrombocytopenia, unspecified; Z11.59 Encounter for screening for other viral diseases; I51.7 Cardiomegaly; I25.10 Atherosclerotic heart disease of native coronary artery without angina pectoris; E87.6 Hypokalemia
CPT/HCPCS: 36415 ×2; 71045; 71260; 74177; 76705; 80053 ×2; 80061; 82550 ×2; 82553 ×2; 83615; 83690; 83735; 83880; 84443; 84484 ×2; 85025 ×2; 85610; 85730; 93005; 93306; 99284; C9113; G0378 ×3; J1650; J2405; J7030; Q9967 ×2; U0002

== ENCOUNTER 2020-12-26 17:43 | Emergency (ER) | payer MEDICARE, BC ==
[~2020-12-26] VITALS: Ht 154.9 cm; Wt 72.6 kg
[2020-12-26] MEDS ORDERED: SODIUM CHLORIDE 0.9% 1000ML 1,000 ML IV ONE (17:54)
[2020-12-26] MEDS ORDERED: MORPHINE SULFATE INJ 4 MG/ML INJ 1ML IV PRN (18:00)
[2020-12-26 18:24] LABS: BASOPHILS % 0.9 % (0.0-1.0); EOSINOPHILS % 0.9 % (0.0-6.0); HEMOGLOBIN 13.2 g/dL (12.0-16.0); LYMPHOCYTES # (AUTO) 0.7 (1.0-3.2); LYMPHOCYTES % 32.4 % (18.0-39.1); MEAN CORPUSCULAR HEMOGLOBIN 32.8 pg (28-32); MEAN CORPUSCULAR HGB CONC 33.8 g/dL (31-35); MONOCYTES # (AUTO) 0.3 (0.2-0.8); MONOCYTES % 11.7 % (4.4-11.3); NEUTROPHILS # (AUTO) 1.1 (2.1-6.9); NEUTROPHILS % 53.2 % (38.7-80.0); PLATELET COUNT 53 x10e3/uL (140-360); RED BLOOD COUNT 4.02 x10e6/uL (3.6-5.1); RED CELL DISTRIBUTION WIDTH 13.3 % (11.7-14.4)
[2020-12-26 18:44] LABS: ALANINE AMINOTRANSFERASE 44 IU/L (0-55); ALBUMIN 3.8 g/dL (3.5-5.0); ALBUMIN/GLOBULIN RATIO 1.2 (0.8-2.0); ALKALINE PHOSPHATASE 163 IU/L (40-150); ANION GAP 17.1 mmol/L (8-16); BLOOD UREA NITROGEN 14 mg/dL (7-26); BUN/CREATININE RATIO 20 (6-25); CALCIUM 9.2 mg/dL (8.4-10.2); CARBON DIOXIDE 22 mmol/L (22-29); CHLORIDE 105 mmol/L (98-107); CREATINE KINASE 98 IU/L (29-168); CREATININE, SERUM 0.71 mg/dL (0.57-1.11); EST GLOMERULAR FILTRATION RATE > 60 ML/MIN (60-); GLUCOSE 134 mg/dL (74-118); POTASSIUM 3.1 mmol/L (3.5-5.1); SODIUM 141 mmol/L (136-145)
[2020-12-26] MEDS ORDERED: IOPAMIDOL 370 MG/ML 200 ML INFUS..BTL INJ ONE ×2 (19:05→19:48)
[2020-12-26] MEDS ORDERED: SODIUM CHLORIDE 0.9% 50ML 0 ML ONE (19:05)
[2020-12-26 19:26] LABS: LYMPHOCYTES % (MANUAL) 27 % (19-48); METAMYELOCYTES % (MANUAL) 1 % (0-0); NEUTROPHILS % (MANUAL) 64 % (40-74)
[2020-12-26 19:27] LABS: PLATELET ESTIMATE MARKEDLY DECREASED; PLATELET MORPHOLOGY COMMENT NORMAL; RBC MORPHOLOGY COMMENT NORMAL
== END 2020-12-26 21:57 | disposition home or self-care (01) ==
LOC: ER 17:58
DX: R10.13 Epigastric pain (principal); I10 Essential (primary) hypertension
CPT/HCPCS: 36415; 74177; 80053; 82550; 82553; 83690; 84484; 85025; 99284; Q9967